=== PATIENT | male | born 1985 | race Caucasian/White ===

== ENCOUNTER 2021-08-20 13:14 | Emergency (ER) | payer OTHER ==
[~2021-08-20] VITALS: Ht 175.3 cm; Wt 79.5 kg
[2021-08-20] MEDS ORDERED: ISOVUE-370 76% 100ML VIAL As Ordered ONE (16:10)
[2021-08-20] MEDS ORDERED: NAPR-837 PO (17:34)
[2021-08-20 17:50] VITALS: BP 116/78
== END 2021-08-20 17:52 | disposition home or self-care (01) ==
LOC: M ED 13:14
DX: S40.012A Contusion of left shoulder, initial encounter (principal); V86.56XA Driver of dirt bike or motor/cross bike injured in nontraffic accident, initial encounter
CPT/HCPCS: 70450; 71260; 72125; 73030; 74177; 80047; 99284; Q9967